=== PATIENT | male | born 1995 | race Caucasian/White ===

== ENCOUNTER 2023-06-04 16:07 | Emergency (ER) | payer OTHER ==
[~2023-06-04] VITALS: Ht 177.8 cm; Wt 80.7 kg
[2023-06-04 16:20] VITALS: BP 142/90; PULSE 108; RESP 20; TEMP 97.5; O2SAT 97
[2023-06-04] MEDS ORDERED: ONDANSETRON 4 MG/2 ML VIAL IVP ONE (16:45)
[2023-06-04] MEDS ORDERED: KETOROLAC 30 MG/ML VIAL IVP ONE (16:45)
[2023-06-04] MEDS ORDERED: NACL 0.9% 1,000 ML IV ONE (16:45)
[2023-06-04 17:59] VITALS: BP 138/82; PULSE 98; RESP 18; TEMP 98.6; O2SAT 97
== END 2023-06-04 17:59 | disposition home or self-care (01) ==
LOC: MED 16:07
DX: J06.9 Acute upper respiratory infection, unspecified (principal); B34.9 Viral infection, unspecified
CPT/HCPCS: 99281

== ENCOUNTER 2023-08-20 13:25 | Emergency (ER) | payer OTHER ==
[~2023-08-20] VITALS: Ht 177.8 cm; Wt 77.1 kg
[2023-08-20 13:36] VITALS: BP 142/73; PULSE 105; RESP 18; TEMP 98.5; O2SAT 100
[2023-08-20 14:41] LABS: BASOPHILS % (AUTO) 0.3 % (0.0-2.0); EOSINOPHILS % (AUTO) 0.5 % (0.0-4.0); HEMATOCRIT 30.8 % (36-52); HEMOGLOBIN 10.4 g/dL (12.0-18.0); LYMPHOCYTES # (AUTO) 0.9 K/uL (2.0-11.5); LYMPHOCYTES % (AUTO) 11.3 % (20.5-51.1); MEAN CORPUSCULAR HEMOGLOBIN 28 pg (27-31); MEAN CORPUSCULAR HGB CONC 34 g/dL (33-37); MEAN CORPUSCULAR VOLUME 83.8 fL (80-94); MONOCYTES # (AUTO) 0.7 K/uL (0.8-1.0); MONOCYTES % (AUTO) 8.7 % (1.7-9.3); NEUTROPHILS % (AUTO) 79.2 % (42.2-75.2); PLATELET COUNT (AUTO) 247 K/uL (140-450); RED BLOOD CELL COUNT(AUTO) 3.68 MIL/uL (4.20-6.10); RED CELL DISTRIBUTION WIDTH 14.7 % (11.6-13.7); WHITE BLOOD COUNT (AUTO) 7.6 K/uL (4.8-10.8)
[2023-08-20 15:06] LABS: ANION GAP 17.7 (8-16); CALCIUM 8.5 mg/dL (8.5-10.1); CARBON DIOXIDE 25.1 mmol/L (21-32); POTASSIUM 3.8 mmol/L (3.5-5.1)
[2023-08-20 15:13] LABS: ALBUMIN 3.5 g/dL (3.4-5.0); BILIRUBIN,DIRECT 0.1 mg/dL (0.0-0.3); TOTAL BILIRUBIN 0.4 mg/dL (0.0-1.0); TOTAL PROTEIN, SERUM 7.4 g/dL (6.4-8.2)
[2023-08-20 16:11] VITALS: BP 138/69; PULSE 101; RESP 19; TEMP 98.5; O2SAT 100
[2023-08-20] MEDS ORDERED: ACET-8905 PO (16:48)
== END 2023-08-20 16:51 | disposition home or self-care (01) ==
LOC: MED 13:25
DX: R10.30 Lower abdominal pain, unspecified (principal); N50.812 Left testicular pain; N50.811 Right testicular pain; F17.200 Nicotine dependence, unspecified, uncomplicated; I10 Essential (primary) hypertension; Z94.0 Kidney transplant status
CPT/HCPCS: 36415; 80048; 80076; 81002; 83690; 85025; 99284

== ENCOUNTER 2024-02-15 13:36 | Emergency (ER) | payer OTHER ==
[~2024-02-15] VITALS: Ht 177.8 cm; Wt 81.6 kg
[~2024-02-15 13:36] MED LIST: ACET-8905 PO
[2024-02-15 13:43] VITALS: BP 160/103; PULSE 100; RESP 22; TEMP 98.3; O2SAT 99
[2024-02-15 15:09] LABS: BILIRUBIN,URINE NEGATIVE (NEGATIVE); BLOOD, URINE TRACE-I (NEGATIVE); COLOR,URINE YELLOW (YELLOW); LEUKOCYTE ESTERASE ,URINE 2+ (NEGATIVE); NITRITE, URINE NEGATIVE (NEGATIVE); PROTEIN,URINE 2+ (NEGATIVE); UGLUCOSE NEGATIVE (NEGATIVE); UROBILINOGEN,URINE 0.2 EU/dL (0.2 - 1)
[2024-02-15 15:10] LABS: BASOPHILS % (AUTO) 0.2 % (0.0-2.0); EOSINOPHILS # (AUTO) 0.1 K/uL (0-0.4); EOSINOPHILS % (AUTO) 1.7 % (0.0-4.0); HEMATOCRIT 24.1 % (36-52); HEMOGLOBIN 7.9 g/dL (12.0-18.0); LYMPHOCYTES # (AUTO) 0.9 K/uL (2.0-11.5); LYMPHOCYTES % (AUTO) 11.9 % (20.5-51.1); MEAN CORPUSCULAR HEMOGLOBIN 27 pg (27-31); MEAN CORPUSCULAR HGB CONC 33 g/dL (33-37); MEAN CORPUSCULAR VOLUME 83.6 fL (80-94); MONOCYTES # (AUTO) 0.7 K/uL (0.8-1.0); MONOCYTES % (AUTO) 9.2 % (1.7-9.3); NEUTROPHILS # (AUTO) 5.6 K/uL (1.8-7.7); PLATELET COUNT (AUTO) 202 K/uL (140-450); RED BLOOD CELL COUNT(AUTO) 2.88 MIL/uL (4.20-6.10); RED CELL DISTRIBUTION WIDTH 13.9 % (11.6-13.7); WHITE BLOOD COUNT (AUTO) 7.3 K/uL (4.8-10.8)
[2024-02-15 15:13] LABS: APPEARANCE,URINE SLIGHTLY HAZY (CLEAR)
[2024-02-15 15:16] LABS: BACTERIA,URINE 1+ /HPF (None Seen); RBC,URINE 0-5 /HPF (0-5)
[2024-02-15 15:17] LABS: MUCUS,URINE None Seen /LPF (None Seen); SQUAMOUS EPITHELIAL CELL,UR 0-3 (FEW) /LPF (0-3 (FEW))
[2024-02-15 15:22] VITALS: BP 160/103; PULSE 100; RESP 22; TEMP 98.3; O2SAT 99
[2024-02-15] MEDS: NACL 0.9% 1,000 ML IV ONE (15:34)
[2024-02-15 15:35] LABS: ALBUMIN 3.1 g/dL (3.4-5.0); CALCIUM 8.1 mg/dL (8.5-10.1); CARBON DIOXIDE 20.5 mmol/L (21-32); CREATININE 3.3 mg/dL (0.6-1.3); POTASSIUM 3.5 mmol/L (3.5-5.1); TOTAL BILIRUBIN 0.2 mg/dL (0.0-1.0); TOTAL PROTEIN, SERUM 5.7 g/dL (6.4-8.2)
== END 2024-02-15 17:21 | disposition home or self-care (01) ==
LOC: MED 13:36
DX: E86.0 Dehydration (principal); K52.9 Noninfective gastroenteritis and colitis, unspecified; I10 Essential (primary) hypertension; Z94.0 Kidney transplant status; Z79.1 Long term (current) use of non-steroidal anti-inflammatories (NSAID)
CPT/HCPCS: 36415; 80053; 81001; 85025; 87086; 96360; 99283; J7030